=== PATIENT | male | born 1955 | race Caucasian/White ===

== ENCOUNTER 2017-02-11 00:20 | Emergency (ER) | payer BC ==
[2017-02-11 00:28] VITALS: BP 174/97
[2017-02-11] MEDS ORDERED: Alum Hydrox/Mag Hydrox/Simeth 30 ML, Lidocaine 2% 15 ML PO ONE ×4 (00:33→01:54)
[2017-02-11] MEDS ORDERED: Famotidine 20 MG/2 ML SDV IVPUSH ONE (00:53)
[2017-02-11] MEDS ORDERED: LORazepam 2 MG/ML MDV IVPUSH ONE (00:54)
[2017-02-11] MEDS ORDERED: Pantoprazole 40 MG Vial IVPUSH ONE (00:54)
--- NOTE | 2017-02-11 01:00 | EDM.PDOC ---
ED HPI GENERAL MEDICAL PROBLEM - General Chief Complaint: Gastrointestinal Problem Stated Complaint: ACID REFLUX Time Seen by Provider: 02/11/17 00:27 Source of Information: Reports: Patient History Limitations: Reports: No Limitations - History of Present Illness INITIAL COMMENTS - FREE TEXT/NARRATIVE: This is a 61-year-old male. Tonight he went to bed around 9 PM and states he awoke from his sleep with severe throat burning. He states this is acid reflux and he thinks he might have gotten some of it in his lungs. He comes here to the ER with trouble breathing and says that it hurts when he coughs. When I go into the room he obviously is somewhat anxious and breathing rapidly. He says that he has a history of acid reflux and takes Protonix for it. He does not elevate the head of his bed when he sleeps. He also ate some spicy sausage for noon and he knows he shouldn't eat it because it causes problems. He denies any other acute symptoms at this time. He denies any radiation of the pain just seems to be in the sternal notch region does not go to the arms or into the jaws. There does not appear to be any nausea and no vomiting. Throat Pain Score (Numeric/FACES): 8 - Related Data Allergies Allergy/AdvReac Type Severity Reaction Status Date / Time No Known Allergies Allergy Verified 02/11/17 00:25 Home Meds: Home Meds Ibuprofen [Motrin Ib] 200 mg PO 11/12/13 [History] Triamcinolone Acetonide [Triamcinolone Acetonide 0.1% Crm] 11/12/13 [History] methylPREDNISolone [Methylprednisolone] 4 mg PO 11/12/13 [History] Past Medical History Gastrointestinal History: Reports: Other (See Below) Other Gastrointestinal History: "fatty liver" - Past Surgical History Male Surgical History: Reports: Lithotripsy (ESWL) Social & Family History - Family History Oncologic: Reports: Colon - Tobacco Use Smoking Status *Q: Former Smoker Used Tobacco, but Quit: Yes Month Tobacco Last Used: fe - Caffeine Use Caffeine Use: Reports: None - Recreational Drug Use Recreational Drug Use: No ED ROS GENERAL - Review of Systems Review Of Systems: See Below Constitutional: Denies: Fever, Chills HEENT: Reports: No Symptoms Respiratory: Reports: Shortness of Breath Cardiovascular: Reports: Chest Pain Endocrine: Reports: No Symptoms GI/Abdominal: Reports: No Symptoms. Denies: Abdominal Pain, Nausea, Vomiting : Reports: No Symptoms Musculoskeletal: Reports: No Symptoms Skin: Reports: No Symptoms Neurological: Reports: No Symptoms Psychiatric: Reports: No Symptoms Hematologic/Lymphatic: Reports: No Symptoms ED EXAM, GI/ABD - Physical Exam Exam: See Below Exam Limited By: No Limitations General Appearance: Alert, WD/WN, Anxious Eyes: Bilateral: Normal Appearance Ears: Normal External Exam Nose: Normal Inspection Throat/Mouth: Normal Inspection, Normal Lips, Normal Voice Head: Normocephalic Neck: Supple, Other (He complains of burning at the sternal notch, he is able to breath and swallow) Respiratory/Chest: No Respiratory Distress, Lungs Clear, Normal Breath Sounds, Other (tachypnea noted but he is able to slow his breathing down when he is reminded) Cardiovascular: Regular Rate, Rhythm, No Murmur GI/Abdominal Exam: Soft, Non-Tender Back Exam: Full Range of Motion Extremities: Normal Inspection, Normal Range of Motion Neurological: Alert, Oriented Psychiatric: Anxious Skin Exam: Warm, Dry Course - Vital Signs Last Recorded V/S: Last Vital Signs Temp 97.9 F 02/11/17 00:21 Pulse 94 02/11/17 00:21 Resp 25 H 02/11/17 00:21 BP 174/97 H 02/11/17 00:21 Pulse Ox 99 02/11/17 00:21 - Orders/Labs/Meds Orders: Active Orders 24 hr Category Date Time Status Chest 2V [CR] Stat Exams 02/11/17 00:34 Taken Labs: Laboratory Tests 02/11/17 02/11/17 Range/Units 01:00 01:00 WBC 8.86 (4.23-9.07) K/mm3 RBC 4.66 (4.63-6.08) M/mm3 Hgb 14.8 (13.7-17.5) gm/L Hct 43.8 (40.1-51.0) % MCV 94.0 H (79.0-92.2) fl MCH 31.8 (25.7-32.2) pg MCHC 33.8 (32.2-35.5) g/dl RDW Std Deviation 42.0 (35.1-43.9) fL Plt Count 313 (163-337) K/mm3 MPV 8.7 L (9.4-12.3) fl Neut % (Auto) 44.9 (34.0-67.9) % Lymph % (Auto) 41.4 (21.8-53.1) % [place] % (Auto) 10.2 (5.3-12.2) % Eos % (Auto) 2.3 (0.8-7.0) Baso % (Auto) 1.0 (0.1-1.2) % Neut # (Auto) 3.98 (1.78-5.38) K/mm3 Lymph # (Auto) 3.67 H (1.32-3.57) K/mm3 [place] # (Auto) 0.90 H (0.30-0.82) K/mm3 Eos # (Auto) 0.20 (0.04-0.54) K/mm3 Baso # (Auto) 0.09 H (0.01-0.08) K/mm3 Sodium 142 (136-145) mEq/L Potassium 3.9 (3.5-5.1) mEq/L Chloride 105 (98-107) mEq/L Carbon Dioxide 26 (21-32) mEq/L Anion Gap 14.9 (5-15) BUN 24 H (7-18) mg/dL Creatinine 1.4 H (0.7-1.3) mg/dL Est Cr Clr Drug Dosing 55.76 mL/min Estimated GFR (MDRD) 51 (>60) mL/min BUN/Creatinine Ratio 17.1 (14-18) Glucose 122 H (80-115) mg/dL Calcium 9.5 (8.5-10.1) mg/dL Total Bilirubin 0.4 (0.2-1.0) mg/dL AST 17 (15-37) U/L ALT 39 (16-63) U/L Alkaline Phosphatase 51 (46-116) U/L Troponin I < 0.017 (0.00-0.056) ng/mL Total Protein 7.5 (6.4-8.2) g/dl Albumin 3.9 (3.4-5.0) g/dl Globulin 3.6 gm/dL Albumin/Globulin Ratio 1.1 (1-2) Meds: Medications Discontinued Medications Generic Name Dose Route Start Last Admin Trade Name Freq PRN Reason Stop Dose Admin Al Hydroxide/Mg Hydroxide 30 0 ml 02/11/17 00:33 02/11/17 00:37 ml/ Lidocaine HCl 15 ml PO 02/11/17 00:34 45 ml ONETIME ONE Administration Al Hydroxide/Mg Hydroxide 30 0 ml 02/11/17 01:54 02/11/17 02:05 ml/ Lidocaine HCl 15 ml PO 02/11/17 01:55 45 ml ONETIME ONE Administration Famotidine 20 mg 02/11/17 00:53 02/11/17 01:09 Pepcid IVPUSH 02/11/17 00:54 20 mg ONETIME ONE Administration Lorazepam 0.5 mg 02/11/17 00:54 Ativan IVPUSH 02/11/17 00:55 ONETIME ONE Pantoprazole Sodium 40 mg 02/11/17 00:54 02/11/17 01:09 Protonix Iv IVPUSH 02/11/17 00:55 40 mg ONETIME ONE Administration - Re-Assessments/Exams Free Text/Narrative Re-Assessment/Exam: 02/11/17 02:21 I spoke to the patient and the family regarding the test results. It now comes out that he loves spicy foods habenaro jalapino and eats it all the time. He had a recent upper endoscopy that showed his esophagus was very inflamed due to his use of spicy foods. I suggested he get some liquid antacids next time he starts getting the burning sensation and take it. Also to take some bricks and put under the head of his bed so he doesn't get reflux at night time. Departure - Departure Time of Disposition: 02:23 Disposition: Home, Self-Care 01 Condition: Good Clinical Impression: Esophagitis, acute Esophageal reflux disease Qualifiers: Esophagitis presence: with esophagitis Qualified Code(s): K21.0 - Gastro- esophageal reflux disease with esophagitis - Discharge Information Referrals: PCP,None [Primary Care Provider] - Forms: ED Department Discharge Additional Instructions: You must stop eating all spicy foods until your esophagus heels, please get some liquid antacids like Mylanta or Maalox when you get the burning sensation, get a couple of bricks put them under the bed post at the head of the bed so you sleep at a slight incline, follow-up with your family doctor as needed and return to the ER if needed - My Orders Last 24 Hours: My Active Orders 02/11/17 00:34 Chest 2V [CR] Stat - Assessment/Plan Last 24 Hours: My Active Orders 02/11/17 00:34 Chest 2V [CR] Stat
--- NOTE | 2017-02-11 18:24 | CR ---
Chest: Two views of the chest were obtained. Comparison: No previous chest x-ray. Heart size and mediastinum are within normal limits. Lungs are clear. Bony structures are within normal limits for the patient's age. Lungs are slightly hyperinflated on the lateral view suggesting emphysematous change. Impression: 1. Questionable emphysematous change. Nothing acute is appreciated on two-view chest x-ray. Diagnostic code #2
== END 2017-02-11 02:40 | disposition home or self-care (01) ==
LOC: JD.ED 00:20
DX: K21.0 Gastro-esophageal reflux disease with esophagitis (principal); Z87.891 Personal history of nicotine dependence
CPT/HCPCS: 36415; 71020; 80053; 84484; 85025; 96374; 96375; 99284; A9270; C9113; 99283

== ENCOUNTER 2018-12-05 18:54 | Emergency (ER) | payer SELFPAY | END 2018-12-05 19:22 | LOC: JD.ED 18:54 | DX: Z53.21 Procedure and treatment not carried out due to patient leaving prior to being seen by health care provider (principal) ==